=== PATIENT | female | born 1930 | race Caucasian/White ===

== ENCOUNTER 2017-04-13 13:29 | Emergency (ER) | payer OTHER ==
[~2017-04-13] VITALS: Ht 165.1 cm; Wt 50.0 kg
[~2017-04-13 13:29] MED LIST: CLOPIDOGREL75 MG PO; DONEPEZIL HCL5 MG PO; I-CAPS AREDS S1 EACH PO; IRBESARTAN-HCT1 EACH PO; LIPITOR10 MG PO; METAMUCIL FIBE3.4 GM PO; OMEPRAZOLE40 M1 PO; PAROXETINE HCL30 MG PO; POLYETHYLENE G255 GM PO; VESICARE5 MG PO; VITAMIN B122500 MCG PO; VITAMIN D-3 401 EACH PO
[2017-04-13 14:26] LABS: HEMATOCRIT 38.2 % (36.0-46.0); HEMOGLOBIN 12.7 G/DL (11.9-15.5); MCH 28.8 PG (29.0-34.0); MCHC 33.2 G/DL (30.0-36.0); MCV 86.6 FL (83-99); PLATELET COUNT 233 K/uL (156-360); RBC DIS.WIDTH-CV 13.2 % (11.8-14.6); RBC DIS.WIDTH-SD 41.5 % (39-53); RED BLOOD COUNT 4.41 M/uL (3.80-5.20); WHITE BLOOD COUNT 10.6 K/uL (4.1-10.2)
[2017-04-13 14:37] LABS: CHLORIDE 107 mEq/L (99-109); POTASSIUM 4.2 mEq/L (3.7-5.4); SODIUM 138 mEq/L (136-147)
[2017-04-13 14:39] LABS: GLUCOSE 88 mg/dL (70-99)
[2017-04-13 14:43] LABS: CREATININE 0.9 mg/dL (0.6-1.3); GFR ESTIMATE (CALCULATED) > 59 mL/min/; UREA NITROGEN (BUN) 14 mg/dL (9-23)
[2017-04-13 15:56] LABS: APPEARANCE CLOUDY ((CLEAR)); BILIRUBIN NEGATIVE; BLOOD NEGATIVE; COLOR AMBER ((YELLOW)); GLUCOSE (STRIP) NEGATIVE; KETONES NEGATIVE; LEUKOCYTES NEGATIVE; NITRITE POSITIVE; PROTEIN (STRIP) NEGATIVE; SPECIFIC GRAVITY 1.012 (1.000-1.030); UROBILINOGEN 0.2 MG/DL (0.2-1.0)
[2017-04-13] MEDS ORDERED: KEFLEX500 MG PO (16:19)
[2017-04-13 16:24] VITALS: BP 169/86
[2017-04-13 16:50] LABS: BACTERIA 1+ /HPF; EPITHELIAL CELLS RARE /HPF; MUCUS TRACE /LPF; RED BLOOD CELLS 0-5 /HPF (0-5); UCUL ADDED? YES
== END 2017-04-13 16:57 | disposition home or self-care (01) ==
LOC: EME 13:29
PROVIDERS: Physician Assistant
DX: N39.0 Urinary tract infection, site not specified (principal); I10 Essential (primary) hypertension; K21.9 Gastro-esophageal reflux disease without esophagitis; E78.5 Hyperlipidemia, unspecified; F32.9 Major depressive disorder, single episode, unspecified; F41.9 Anxiety disorder, unspecified; I73.9 Peripheral vascular disease, unspecified; M19.90 Unspecified osteoarthritis, unspecified site; M85.80 Other specified disorders of bone density and structure, unspecified site; Z85.828 Personal history of other malignant neoplasm of skin; Z90.49 Acquired absence of other specified parts of digestive tract; Z88.5 Allergy status to narcotic agent; Z88.0 Allergy status to penicillin; Z88.1 Allergy status to other antibiotic agents; Z88.2 Allergy status to sulfonamides; Z88.8 Allergy status to other drugs, medicaments and biological substances
CPT/HCPCS: 70450; 80048; 81003; 85027; 87077; 87086; 87186; 93005; 99281; 99285

== ENCOUNTER 2017-09-25 14:49 | Emergency (ER) | payer OTHER ==
[~2017-09-25] VITALS: Ht 167.6 cm; Wt 61.1 kg
[~2017-09-25 14:49] MED LIST changes: +KEFLEX500 MG PO
[2017-09-25 15:50] LABS: BASOPHIL (%) 0.6 % (0-1); BASOPHIL COUNT 0.1 K/uL (0-0.1); EOSINOPHIL COUNT 0.7 K/uL (0-0.3); HEMATOCRIT 37.1 % (36.0-46.0); HEMOGLOBIN 12.4 G/DL (11.9-15.5); IMMATURE GRANULOCYTE (%) 0.3 % (0.0-0.7); LYMPHOCYTE (%) 13.7 % (15-42); LYMPHOCYTE COUNT 1.6 K/uL (1.0-2.8); MCHC 33.4 G/DL (30.0-36.0); MCV 86.7 FL (83-99); MONOCYTE (%) 10.1 % (3-12); MONOCYTE COUNT 1.2 K/uL (0-0.8); NEUTROPHIL (%) 69.3 % (45-76); NEUTROPHIL COUNT 8.1 K/uL (1.8-6.4); PLATELET COUNT 226 K/uL (156-360); RBC DIS.WIDTH-CV 14.2 % (11.8-14.6); RBC DIS.WIDTH-SD 45.1 % (39-53); RED BLOOD COUNT 4.28 M/uL (3.80-5.20); WHITE BLOOD COUNT 11.8 K/uL (4.1-10.2)
[2017-09-25 15:59] LABS: CHLORIDE 104 mEq/L (99-109); POTASSIUM 4.6 mEq/L (3.7-5.4); SODIUM 138 mEq/L (136-147)
[2017-09-25 16:00] LABS: GLUCOSE 145 mg/dL (70-99)
[2017-09-25 16:04] LABS: GFR ESTIMATE (CALCULATED) 56 mL/min/
[2017-09-25 16:05] LABS: UREA NITROGEN (BUN) 24 mg/dL (9-23)
[2017-09-25] MEDS ORDERED: VICODIN 5-3001 EACH PO (17:17)
[2017-09-25 18:10] VITALS: BP 196/94
== END 2017-09-25 18:11 | disposition other institution (70) ==
LOC: EME 14:49
PROVIDERS: Emergency Medicine
DX: S52.592A Other fractures of lower end of left radius, initial encounter for closed fracture (principal); W18.30XA Fall on same level, unspecified, initial encounter; M85.80 Other specified disorders of bone density and structure, unspecified site; M25.462 Effusion, left knee; I10 Essential (primary) hypertension; G30.9 Alzheimer's disease, unspecified; F02.80 Dementia in other diseases classified elsewhere, unspecified severity, without behavioral disturbance, psychotic disturbance, mood disturbance, and anxiety; E78.5 Hyperlipidemia, unspecified; I73.9 Peripheral vascular disease, unspecified; K21.9 Gastro-esophageal reflux disease without esophagitis; G43.909 Migraine, unspecified, not intractable, without status migrainosus; M19.90 Unspecified osteoarthritis, unspecified site; F41.9 Anxiety disorder, unspecified; F32.9 Major depressive disorder, single episode, unspecified; Z85.828 Personal history of other malignant neoplasm of skin; Z87.19 Personal history of other diseases of the digestive system; Z90.49 Acquired absence of other specified parts of digestive tract; Z88.5 Allergy status to narcotic agent; Z88.0 Allergy status to penicillin; Z88.8 Allergy status to other drugs, medicaments and biological substances
CPT/HCPCS: 70450; 73100; 73110; 73564; 80048; 85025; 87040; 93005; J2270